=== PATIENT | female | born 1995 | race Caucasian/White ===

== ENCOUNTER 2022-08-16 00:30 | Day surgery (SDC) | payer OTHER, SELFPAY ==
[2022-08-08 09:12] VITALS: BMI 38.3
--- NOTE | 2022-08-08 09:18 | PC.NURSE ---
Report to the Outpatient Waiting Room, entrance under the green pavilion located off [facility], at time _0630_ on date _[id number]_. OR Time: _0830_. Time changes happen often and if your time is changed the preop area will call you the afternoon before. - You and your visitor will be asked to self-screen and do not enter if you have any COVID symptoms. - Only one visitor and NO children visitors are allowed at this time. - The patient visitor is requested to leave or wait in car when not with patient due to restrictions. - A mask is required within the hospital. Patients may have clear liquids (water, carbonated beverages, clear teas, apple juice) until 3 hours prior to surgery with a maximum of 20 ounces. - No food from midnight until time of surgery Take the following medications with a SIP of water the morning of surgery: __Duloxetine and Escitalopram Medications to discontinue per physician None Date to take last dose Please no make-up, nail lao, hairspray, perfume, deodorant, or body powder the day of surgery. No jewelry (including any body piercings) or valuables the day of surgery, leave them at home. Please take a shower or bath the night before, or the morning of, surgery with an antibacterial soap. Wear comfortable, loose fitting clothing. - Jewelry must be removed prior to entering the operating room. Rings and piercings that are not removed may be cut off. - The hospital will not accept responsibility for valuables. - Please leave all valuables, including medications, at home the day of surgery. If you are going home after surgery, a licensed hazmat cdl driver must drive you home. - NO public transportation without another adult. - We recommend that an adult stay with you for 24 hours following discharge. - We also recommend that you do not drive, make important decision, drink alcoholic beverages, or take any drugs that were not prescribed by your health care provider for at least 24 hours after your discharge time. Follow any additional instructions given to you from your surgeon. If you or anyone in your household have experienced Covid symptoms in the past week, please notify your surgeon or the nurse liaison at the phone number below for possible testing. Telephone instructions given to __Patient___and asked if any additional questions and then verbalized understanding. Patient advised to call surgeon office or pre surgery nurse liaison [phone] if any additional questions.
--- NOTE | 2022-08-14 05:47 | P.HP_ITS ---
H&P: HPI History of Present Illness Date/Time: 08/14/22 05:47 Chief Complaint: Sterilization Narrative: This is a 26-year-old multiparous female 2 para 2 admitted for laparoscopic tubal ligation. She has had no luck with IUD and refuses other forms of control. She understands this to be a permanent irreversible procedure and has signed the [facility] consent concerning tubal ligation she understands to be permanent irreversible. Risks and benefits of the procedure reviewed including not exclusive of , aspiration pneumonia, bleeding, transfusion, perforation injury to bowel, bladder, ureters, or other internal organs with need for open laparotomy. She received the [employer] handout entitled sterilization for men and women. She had all questions answered and asked to proceed PMFSH Social History Social History Years smoked: 2 Smoking status: Former smoker Tobacco type: cigarettes Smoking end date: 08/08/18 Substance use type: marijuana Other substance usage details: Daily Living arrangements: with family Spiritual care concerns: No Meds Home Medications and Allergies Home Medications Medication Instructions Recorded Confirmed Type amitriptyline 10 mg tablet 10 mg PO HS 08/08/22 08/08/22 History duloxetine 20 mg capsule,delayed 20 mg PO DAILY 08/08/22 08/08/22 History release escitalopram oxalate 20 mg tablet 40 mg PO DAILY 08/08/22 08/08/22 History Allergies Allergy/AdvReac Type Severity Reaction Status Date / Time No Known Allergies Allergy Verified 08/08/22 09:09 Exam Const: General: cooperative, healthy appearing and comfortable Nutritional Appearance: obese Orientation/consciousness: oriented to person, oriented to place and oriented to time HENMT: Head: normal to inspection Resp: Effort & Inspection: normal respiratory effort Cardio: Rate: regular rate Rhythm: regular rhythm Heart sounds: S1 normal heart sound present and S2 normal heart sound present GI: Inspection: normal to inspection : External Female Exam: normal external appearance Speculum Exam - Vagina: normal appearance of the vagina Speculum Exam - Cervix: normal appearance of the cervix Bimanual exam- vagina & uterus: uterine shape normal Bimanual Exam- Adnexa, other: normal adnexae Assessment and Plan Assessment and plan (1) Sterilization: Code(s): Z30.2 - Encounter for sterilization Status: Acute Plan Laparoscopic tubal ligation
[2022-08-16] VITALS (8 sets, daily range): BP systolic 128–153; BP diastolic 69–85; PULSE 86–120; RESP 15–19; TEMP 36.5–37.1; O2SAT 97–100
[2022-08-16] MEDS: ACETAMINOPHEN 500 MG TABLET 1000 MG PO (06:30)
--- NOTE | 2022-08-16 06:42 | WPDHPUPDATE1 ---
History and Physical Update Update Date/Time: 08/16/22 06:42 History and Physical has been reviewed, including an updated exam of the patient. There are NO changes in the patient's condition. Risks, benefits, and alternatives have been discussed and questions answered. Patient agrees to proceed with procedure.
[2022-08-16] MEDS: LACTATED RINGERS 1,000 ML 30 ML IV CONT ×3 (06:50→09:05)
--- NOTE | 2022-08-16 06:53 | WPDANESEPPF ---
Anes - Initial Pre Proc Eval Procedure: Operation Date: 08/16/22 07:30 Proposed Procedures p Laparoscopic Bilateral Tubal Ligation with Fallopian Rings - Endy Gaona MD Date/Time: 08/16/22 06:53 Surgeon: Endy Gaona MD Pre Op Diagnosis: Desire Sterilization Patient Data Age: 26 Gender: F Height: 1.65 m Weight: 104.5 kg Allergies Allergy/AdvReac Type Severity Reaction Status Date / Time No Known Allergies Allergy Verified 08/16/22 06:20 Home Medications Medication Instructions Recorded Confirmed Type amitriptyline 10 mg tablet 10 mg PO HS 08/08/22 08/16/22 History duloxetine 20 mg capsule,delayed 20 mg PO DAILY 08/08/22 08/16/22 History release escitalopram oxalate 20 mg tablet 40 mg PO DAILY 08/08/22 08/16/22 History hydrocodone 5 mg-acetaminophen 325 1 tablet PO Q4H PRN pain #20 tabs 08/16/22 Rx mg tablet Patient hx anesthesia problems: none Family hx anesthesia problems: post op nausea/vomiting Results Review: All pre-operative results and documents have been reviewed as part of the pre-operative evaluation. [facility] Past Medical History Medical History Anxiety Bipolar disorder Depression OCD (obsessive compulsive disorder) Social History Social History Years smoked: 2 Smoking status: Former smoker Tobacco type: cigarettes Smoking end date: 08/08/18 Substance use type: marijuana Other substance usage details: Daily Living arrangements: with family Spiritual care concerns: No Anes - Eval Final PreProcedure Day of Procedure 08/16/22 06:53 Patient weight: obese Heart: regular rate and rhythm Lungs: clear to auscultation Airway: Mallampati scale class II Neurological: alert and oriented Last oral intake: >/= 8 hours ASA classification: III Emergent: no Anesthetic plan: proceed Anesthesia type and monitoring: general ETT and standard monitoring Results Review: All pre-operative results and documents have been reviewed as part of the pre-operative evaluation. Informed Consent: The patient's anesthetic plan and its attendant risks and benefits were discussed with the patient/family/POA. Questions were solicited and answers provided to the satisfaction of the patient/family/POA.
[2022-08-16] MEDS: KETOROLAC 15 MG/ML VIAL (*BKC) IV PUSH (07:10)
[2022-08-16] MEDS: SCOPOLAMINE 1.5 MG PATCH TRANSDERM (07:18)
--- NOTE | 2022-08-16 07:59 | W.PM.PROC2 ---
Procedure Note - Detailed Date of Procedure 08/16/22 Pre-op Diagnosis Desire Sterilization Post-op Diagnosis Same Procedure Performed Laparoscopic bilateral tubal ligation with silastic ring Surgeon Endy Gaona MD Anesthesia General Indications Set 26-year-old multiparous who desires permanent sterilization she Findings Normal-appearing ovaries tubes and uterus. Description of Procedure The patient was prepped draped in the normal sterile fashion placed in the dorsal lithotomy position. Excellent general trach anesthesia weighted speculum placed in posterior fornix of the anterior lip of the cervix grasped with a single-tooth tenaculum. Sanches's cannula inserted attached to the single-tooth to be used later for uterine manipulation. After emptying the bladder with clear urine the weighted speculum was removed and gloves were changed. An infraumbilical incision made the Veress needle passed in the abdomen. Abdomen filled with CO2 gas [id number] 5mm trocar advanced under direct visualization with the scope and no injury seen. Patient placed in Trendelenburg and a suprapubic incision made. The 8mm trocar advanced under direct visualization assuring no injury. Ovaries tubes and uterus appeared within normal limits. The right fallopian tube was grasped and a good knuckle of tube formed with fallopian tube grasper. Photo documentation undertaken. The opposite tube was grasped at its midportion and a good knuckle of tube formed with excellent blanching as well. Photo documentation was undertaken no other abnormalities were seen the lower site removed. The upper site removed. The incisions closed with 4 Monocryl and glue. Instruments removed from the vagina and the patient went to recovery in satisfactory condition. All sponge, needle, instrument counts were correct. There were no immediate complications Estimated Blood Loss 5 Drains No Packing No Pathology None sent Complications No immediate complications Condition Stable Disposition PACU
[2022-08-16] MEDS: fentaNYL CITRATE INJ (*CRX) 100 MCG/2 ML VIAL 25 MCG IV PUSH ×5 (08:27→09:21)
[2022-08-16] MEDS: oxyCODONE HCL (*CRX) 5 MG TAB IR PO (09:03)
== END 2022-08-16 09:50 | disposition home or self-care (01) ==
PROVIDERS: PCP Family Medicine; Visit Provider Obstetrics & Gynecology
PROC: (CPT 58671; principal; 2022-08-16 07:30)
DX: Z30.2 Encounter for sterilization (principal); Z87.891 Personal history of nicotine dependence
CPT/HCPCS: 58671; A4264; A9270; J0330; J1100; J1170; J1885; J2250; J2405; J2704; J3010; J7030; J7120